=== PATIENT | female | born 2000 | race Caucasian/White ===

== ENCOUNTER 2019-09-14 22:31 | Inpatient (IN) | payer MEDICAID, SELFPAY ==
[2019-09-14 21:20] VITALS: BP 142/82; PULSE 104
[2019-09-14 21:31] VITALS: RESP 20; TEMP 36.9
[2019-09-14 21:38] VITALS: BP 132/85; PULSE 93
[2019-09-14 22:02] VITALS: BMI 23.0
[2019-09-14 22:14] LABS: Actim Prom Positive
[2019-09-14 22:15] VITALS: BP 0/0
[2019-09-14 22:16] VITALS: BP 128/78; PULSE 93
[2019-09-14] MEDS: miSOPROStol 100 mcg tablet 25 MCG VAGINAL (23:32)
[2019-09-14] MEDS: dextrose 5%-lactated ringers 1,000 ML 125 ML IV (23:32)
[2019-09-14 23:33] VITALS: TEMP 36.7
[2019-09-14 23:34] LABS: Basophils % 0.4 %; Eosinophils # 0.1 10^3/uL (0.0-0.8); Hematocrit 28.6 % (37.0-47.0); Hemoglobin 8.5 g/dL (11.5-15.3); Lymphocytes # 2.5 10^3/uL (0.8-4.8); Mean Corpuscular HGB Conc 29.7 g/dL (30.0-36.0); Mean Corpuscular Hemoglobin 22.5 pg (28.0-34.0); Mean Corpuscular Volume 75.9 fL (81-99); Mean Platelet Volume 10.7 fL (7.4-10.4); Monocytes # 0.7 10^3/uL (0.2-0.9); Monocytes % 7.4 %; Neutrophils # 5.9 10^3/uL (1.8-7.7); Neutrophils % 62.6 %; Nucleated Red Blood Cells % 0 %; Platelet Count 212 10^3/cmm (130-400); Red Blood Count 3.77 10^6/uL (4.1-5.3); Red Cell Distribution Width 13.5 % (12.1-15.1); White Blood Count 9.4 10^3/uL (4.0-10.0)
[2019-09-15] VITALS (82 sets, daily range): BP systolic 0–156; BP diastolic 0–98; PULSE 68–124; RESP 16–18; TEMP 36.6–37.4; O2SAT 90–100
--- NOTE | 2019-09-15 00:33 | ANES.PREANE2 ---
Pre-Anesthetic Assessment Pre-Anesthetic Assessment: Height/Weight: Height 1.6 m Weight 58.967 kg Pulse BP Pulse Ox 114 H 0/0 90 09/15/19 00:28 09/15/19 00:32 09/15/19 00:30 Preop Diagnosis: term labor Proposed Procedure: GAYATRI Familial anesthetic complications: none Last Intake: 16:30 Social: Social History: No alcohol and No tobacco Exam: Pre-Anes Outpt Exam: alert, oriented x 3, clear to auscultation bilaterally and regular rate & rhythm Airway: Submandibular: WNL Cervical ROM: WNL MP: 2 Dentition: Full History/ROS: No significant history except as noted and No significant complaints Pulmonary: Pulmonary: None reported CV/HEM: CV/HEM: None reported : : None reported Hepatic: Hepatic: None reported GI: GI: None reported Metabolic: Metabolic: None reported Musc/skel: Musc/skel: Scoliosis Neuropsych: Neuropsych: Anxiety Anesthetic Plan: ASA status: 2 Risk of > 500 ml blood loss (7ml/kg in children): No Meds/Allergies Current Medications: Current Medications Generic Name Dose Route Start Last Admin Trade Name Freq PRN Reason Stop Dose Admin Dextrose/Lactated Ringer's 1,000 mls @ 125 m ls/hr 09/14/19 22:30 09/14/19 23:32 Dextrose 5%-Lact ated Ringers IV 125 mls/hr .Q8H GABRIEL Administration Misoprostol 25 mcg 09/14/19 22:45 09/14/19 23:32 Cytotec VAGINAL 25 mcg Q4H GABRIEL Administration PFSH Anesthesia Female Reproductive History: : 4 Data Anesthesia CBC & Chem 7: 09/14/19 23:17 Other Labs: Laboratory Results - last 48 hr 09/14/19 09/14/19 21:45 23:17 WBC 9.4 RBC 3.77 L Hgb 8.5 L Hct 28.6 L MCV 75.9 L MCH 22.5 L MCHC 29.7 L RDW 13.5 Plt Count 212 MPV 10.7 H Neut % (Auto) 62.6 Lymph % (Auto) 27.0 [place] % (Auto) 7.4 Eos % (Auto) 1.0 Baso % (Auto) 0.4 Neut # (Auto) 5.9 Lymph # (Auto) 2.5 [place] # (Auto) 0.7 Eos # (Auto) 0.1 Baso # (Auto) 0.0 Nucleated RBC % (auto) 0 Nucleated RBCs # 0.0 Insulin-like GF I Positive Cardiac Studies: No Data to Display
--- NOTE | 2019-09-15 00:36 | P.ANES_ITS ---
Anesthesia Procedures Procedure/Date: 09/15/19 GAYATRI Epidural: Time Out Performed: Yes Consents Signed: Procedure Consent Consent: requested by attending/covering physician, from patient, risks and bene fits reviewed and patient agrees to proceed Lumbar Level: L3-L4 Epidural position: sitting Epidural procedure: sterile prep of area, 1% lidocaine to numb the area, 18 g needle, neg for paresthesia, test dose given, 1.5% xylocaine 1:200k epi, 0.2% Ropivacaine bolus ml, placed PCEA, no systemic response, sterile dressing applied and 0.2% Ropiavacaine @ mls/hr Additional Comments: ropiv 0.2% 5cc and 100 mcg Fent bolus at 0035
[2019-09-15] MEDS: ondansetron 2 mg/ML SDV 2 mL 4 MG IVP (00:40)
--- NOTE | 2019-09-15 03:36 | PM.DELIVERY ---
 Delivery Note: Date of delivery: September 15, 2019 Pre-Delivery Course: 19-year-old 4 para 1-0-0-1 female at 38 weeks presented to the hospital with possible rupture of membranes. Her has been unremarkable. She had consistent care. Her labs were unremarkable including a blood type of A positive. Her nitrazine test was inconclusive. An Actiprom was positive. She was given Cytotec 25 mcg per vagina x1. She progressed to complete without difficulty. She was GBS positive, and was started on Ancef per protocol due to a penicillin allergy Delivery: DELIVERY: The patient progressed to complete without difficulty. She delivered a female with a weight of 6 pounds 8 ounces with Apgars of 9, 10. The baby was delivered from the ROSANA position. The baby's mouth and nose were suctioned at the site of the perineum. The baby was then completely delivered and placed on the mother's abdomen. The cord was then clamped and cut. There was nuchal cord x1. There was no meconium. The placenta and 3 vessel cord were delivered intact shortly thereafter. The perineum and vaginal vault were carefully examined. A first-degree posterior midline tear was noted that did not require repair. Both the mother and the baby were in stable condition. Post-Delivery Status: Good A&P Assessment and plan (1) 38 weeks gestation of : Status: Acute Code(s): Z3A.38 - 38 weeks gestation of (2) Spontaneous rupture of membranes: Status: Acute (3) Spontaneous vaginal delivery: Routine care. She did have a little heavier bleeding than normal , if that persists, will need to consider treating her accordingly. She only got 1 dose of antibiotics and her child will need to stay in the hospital for 48 hours. Status: Acute Code(s): O80 - Encounter for full-term uncomplicated delivery (4) Group beta Strep positive: Status: Acute Code(s): B95.1 - Streptococcus, group B, as the cause of diseases classified elsewhere Coding Level of Care Code Acute Pleating Supervisor for Chg Fwd Diagnoses 38 weeks gestation of Z3A.38 Spontaneous rupture of membranes Spontaneous vaginal delivery O80 Group beta Strep positive B95.1
[2019-09-15] MEDS: methylergonovine 0.2 mg/mL INJ 1 mL IM (03:55)
--- NOTE | 2019-09-15 07:57 | ANE.PACU2 ---
 Inpatient post-anesthesia follow up: Airway intact: Yes Vital signs: Temperature 99.4 F Pulse Rate 107 Respiratory Rate 20 Blood Pressure 0/0 Pulse Oximetry 100 Oxygen Delivery Me thod Room Air Oxygen Flow Rate Fraction of Inspir ed Oxygen Hydration adequate: Yes Nausea and vomiting: No Mental status: Baseline Additional Comments: NO signs of infection, up and walking, urinating without ring, patient has had frontal headache since delivery. No exacerbating factors and patient was standing up in room upon examination. States it improved with ibuprofen but is otherwise constant. Feels sleep will help.
[2019-09-15] MEDS: docusate sodium 100 mg Capsule PO ×2 (09:39→17:38)
[2019-09-15] MEDS: prenatal vitamin Capsule 1 CAP PO (09:39)
[2019-09-15] MEDS: HYDROcodone-acetaminophen 5-325 mg Tablet PO ×2 (09:42→17:37)
[2019-09-15 15:44] LABS: Hemoglobin 9.2 g/dL (11.5-15.3); Mean Corpuscular HGB Conc 29.7 g/dL (30.0-36.0); Mean Corpuscular Hemoglobin 22.9 pg (28.0-34.0); Mean Corpuscular Volume 77.3 fL (81-99); Platelet Count 225 10^3/cmm (130-400); Red Blood Count 4.01 10^6/uL (4.1-5.3); Red Cell Distribution Width 13.6 % (12.1-15.1); White Blood Count 12.3 10^3/uL (4.0-10.0)
--- NOTE | 2019-09-15 19:27 | PC.NURSE ---
PATIENT CARE WAS DONE BY FIONA SUAREZ RN AND THIS COMMISSARY SUPERINTENDENT JUST DOCUMENTED FOR HER AT 1925.
[2019-09-16 04:51] VITALS: BP 110/66; PULSE 78; RESP 16
--- NOTE | 2019-09-16 07:34 | PM.OBGYPN ---
GROUNDS AND NURSERY SPECIALIST Subjective Subjective: Interval history: The patient appears to be doing well. Her bleeding has been minimal. She has not been very motivated to breast-feed. Labor: Station: 0 Amniotic Membrane Status: Leaking Monitor Mode: External Contraction Pattern: Regular Status: Category ll Vitals/I&O/Wt Last Vital Signs Temp 98.0 F 09/15/19 21:00 Pulse 78 09/16/19 04:51 Resp 16 09/16/19 04:51 BP 110/66 09/16/19 04:51 Pulse Ox 97 09/15/19 16:30 Weight last 48 hrs Weight 130 lb Physical Exam Narrative: EXAM NARRATIVE: The patient is alert. She appears comfortable. Her heart has a regular rate and rhythm with no murmurs appreciated. Lungs are clear to auscultation bilaterally. Her fundus is firm and below the umbilicus. Data : 09/15/19 15:26 A&P Assessment and plan (1) Spontaneous vaginal delivery: I anticipate routine care. She mentioned to 1 of our nurses that she has some difficulty with depression with her previous . I discussed this with her, including discussing options such as therapy and treatment with medicine. At this time she does not want to start a medication as she does not feel like she is struggling too much. Status: Acute Code(s): O80 - Encounter for full-term uncomplicated delivery Attestations Medical Necessity Statement*: Routine care. She was GBS positive at her child did not receive adequate antibiotic coverage. Coding Level of Care Code Acute Political Anthropologist for Yanna Dias Diagnoses Spontaneous vaginal delivery O80
[2019-09-16] MEDS: docusate sodium 100 mg Capsule PO ×2 (08:45→18:30)
[2019-09-16] MEDS: prenatal vitamin Capsule 1 CAP PO (08:45)
[2019-09-16] MEDS: HYDROcodone-acetaminophen 5-325 mg Tablet PO ×2 (08:46→22:34)
[2019-09-16 10:25] VITALS: BP 114/78; PULSE 98; RESP 18; TEMP 36.6; O2SAT 98
[2019-09-16 17:30] VITALS: BP 113/76; PULSE 82; RESP 18; TEMP 36.4; O2SAT 99
[2019-09-16 22:00] VITALS: BP 114/69; PULSE 80; RESP 18; TEMP 36.9
[2019-09-17 04:42] VITALS: BP 112/68; PULSE 76; RESP 16; TEMP 36.7
--- NOTE | 2019-09-17 07:49 | PC.NURSE ---
Patient does not have IV.
--- NOTE | 2019-09-17 07:57 | P.DS_ITS ---
Discharge Providers [employer] CERTIFIED NETWORK ASSOCIATE Date of Admission: 09/14/19 22:31 Date of Discharge: 09/17/19 Attending Provider at Admission: Claude Rivera MD Attending Provider at Discharge: Claude Rivera MD Primary Care Provider: Talha Dao MD Diagnoses at Discharge Discharge Diagnosis (1) Spontaneous vaginal delivery: Status: Acute Reason for Visit Reason for Visit: Reason For Visit: OB TRIAGE Hospital Course Hospital Course: The patient presented to the hospital in active labor. Please see delivery note for details regarding her hospital stay prior to her delivery. , she had an unremarkable hospital stay. Her bleeding was within normal limits. She did breast-feed and bottle feed her baby during her hospital stay. She receives assistance from the nurses as well as the computing consultant regarding her breast-feeding. Her pain was well controlled. Information Peripartum Data: Delivery Method: Vaginal Physical Exam Narrative: EXAM NARRATIVE: The patient is alert. She appears comfortable. Her heart has a regular rate and rhythm with no murmurs appreciated. Lungs are clear to auscultation bilaterally. Her fundus is firm and below the umbilicus. Discharge Data Vitals: Last Vital Signs Temp 98.0 F 09/17/19 04:42 Pulse 76 09/17/19 04:42 Resp 16 09/17/19 04:42 BP 112/68 09/17/19 04:42 Pulse Ox 99 09/16/19 17:30 Discharge Plan Discharge Patient Disposition: Home, Self-Care Condition: Stable Prescriptions: New ibuprofen 800 mg Tablet 800 mg PO Q8H Qty: 45 RF: 0 Discharge Orders: Discharge Order (Routine); Ordered 09/17/19 Ordered By: Claude Rivera Referrals: Claude Rivera MD [Physician] - 6 Weeks Discharge Diet: Regular Discharge Activity: Limit activity as instructed Patient Instructions: Bleeding (DC), OB Discharge Report, OB Food/Drug Interaction Guide, OB Care at Home, OB Home Care, OB Vaginal Deliveries Discharge Attestations [employer] CERTIFIED NETWORK ASSOCIATE Time Spent in Discharge Care*: less than 30 min Coding Level of Care Code Acute Welfare Eligibility Worker for Chg Fwd Diagnoses Spontaneous vaginal delivery O80
[2019-09-17 08:54] VITALS: BP 102/65; PULSE 98; RESP 18; TEMP 36.7; O2SAT 96
== END 2019-09-17 09:44 | disposition home or self-care (01) | DRG 807 ==
LOC: OPOB 09-18 08:39
PROVIDERS: Admitting Provider Family Medicine; Family Provider Family Medicine; PCP Specialist; Visit Provider Family Medicine
DX: O99.824 Streptococcus B carrier state complicating childbirth (principal); Z37.0 Single live birth; Z3A.38 38 weeks gestation of pregnancy; O69.81X0 Labor and delivery complicated by cord around neck, without compression, not applicable or unspecified; O70.0 First degree perineal laceration during delivery
CPT/HCPCS: 12345; 36415; 51702; 59409; 83986; 84112; 85025; 85027; 96372; 96374; 96375; 98960; 99211; J0690; J2210; J2405; J2795; J3010

== ENCOUNTER 2020-01-08 23:50 | Emergency (ER) | payer MEDICAID, SELFPAY ==
[2020-01-08 23:54] VITALS: BP 127/82; PULSE 119; RESP 16; TEMP 37; O2SAT 100; BMI 21.6
--- NOTE | 2020-01-08 23:55 | XR_ITS ---
WS: [id number] PORTABLE CHEST HISTORY: syncope COMPARISON: 05/28/2017 Lungs are clear and well expanded. No pleural effusion or pneumothorax. Cardiac size: Normal. Mediastinum/Aorta: Normal mediastinum. No osseous abnormality seen. XR/XR chest 1V portable [id number] IMPRESSION: Unremarkable portable chest.
--- NOTE | 2020-01-08 23:56 | ECG_ITS ---
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 Measurements Intervals [place] Rate: 113 P: 68 GA: 132 QRS: 38 QRSD: 89 T: 28 QT: 285 QTc: 392 Interpretive Statements SINUS TACHYCARDIA NONSPECIFIC T-WAVE ABNORMALITY ABNORMAL RHYTHM ECG No previous ECG available for comparison Electronically Signed On 01-09-2020 21:50:55 CDT by Ann Gomez M.D. [email or web address].Invaluable/store/NU/[id number] f
--- NOTE | 2020-01-08 23:56 | W.ED.SYNCOPE ---
HPI - Syncope General: Chief Complaint: Syncope Stated Complaint: SYNCOPE / NUMBNESS / TINGLING Time Seen by Provider: 01/08/20 23:51 Source: patient and EMS Mode of arrival: EMS Limitations: no limitations History of Present Illness: HPI narrative: 19-year-old female who states she smoked marijuana roughly 1 to 2 hours ago. She states that she started to feel lightheaded and did pass out. She states that she had 2 syncopal episodes and is felt anxious and is tachycardic. Patient denies any more lightheadedness is currently. Denies any chest pain. MD complaint: loss of consciousness Onset (ago): hour(s) Associated symptoms: Deny abdominal pain, chest pain, fever(s), headache(s) or nausea Review of Systems Const: Denies: fever(s), chills, body aches or change in appetite Eyes: Denies: blurry vision or eye discomfort ENMT: Denies: throat pain or dental pain Card: Reports: palpitations and syncope; Denies: chest pain Resp: Denies: dyspnea GI: Denies: abdominal pain, nausea, vomiting or diarrhea : Denies: dysuria Musc: Denies: neck pain or back pain Skin/Breast: Denies: rash Neuro: Denies: headache(s) Psych: Reports: anxiety [place]/Lymph: Denies: easy bruising All/Imm: Denies: urticaria PFSH ED PFSH: Social History Smoking and tobacco status: never smoked Physical Exam Const: COMMON NORMALS: no acute distress, patient oriented x3 and healthy appearing HENMT: COMMON NORMALS: normocephalic and atraumatic HEAD & SCALP: normocephalic and atraumatic Eye: COMMON NORMALS: Equal, round and reactive pupils present and EOMs intact bilaterally PUPIL: Yes Equal, round and reactive pupils present Neck/C-Spine: COMMON NORMALS: full ROM and supple Chest: COMMONS NORMALS: normal inspection of the chest and normal palpation of entire chest wall Resp: COMMON NORMALS: normal respiratory effort, No retractions, No use of accessory muscles and clear to auscultation bilaterally AUSCULTATION: clear to auscultation bilaterally Cardio: COMMON NORMALS: regular rhythm and No murmurs present (Cardio) RATE: tachycardic RHYTHM: regular rhythm GI: COMMON NORMALS: Normal to inspection, nondistended, normoactive bowel sounds present, Soft to palpation, non-tender and no masses PALPATION: Yes Soft to palpation Extremity: COMMON NORMALS: normal to inspection and full ROM Neuro: COMMON NORMALS: patient oriented x3, moves all extremities and no focal motor deficits Psych: COMMON NORMALS: mental status grossly normal, Normal thought process present and cooperative MOOD & AFFECT: Yes anxious THOUGHT PROCESS: Normal thought process present Skin: COMMON NORMALS: no rashes or lesions noted and no wounds GENERAL SKIN EXAM: no rashes or lesions noted Course Vital Signs: Vital signs: Vital Signs Temperature 98.6 F 01/08/20 23:54 Pulse Rate 105 H 01/09/20 01:15 Respiratory Rate 16 01/09/20 01:15 Blood Pressure 106/81 01/09/20 01:15 Pulse Oximetry 99 01/09/20 01:15 MDM - Syncope MDM Narrative: Medical decision making narrative: Joe presents here with syncopal event likely due to marijuana use tonight. Patient's EKG and lab work here are normal. She is feels much improved after Ativan and IV fluids. She is stable for discharge and is to follow-up with primary care doctor in 3 to 5 days and return if worsening. Lab Data: Labs: Lab Results 01/08/20 01/08/20 01/09/20 Range/Units 23:58 23:58 01:24 WBC 13.5 H (4.0-10.0) 10^3/ uL RBC 4.80 (4.1-5.3) 10^6/u L Hgb 10.9 L (11.5-15.3) g/dL Hct 36.4 L (37.0-47.0) % MCV 75.8 L (81-99) fL MCH 22.7 L (28.0-34.0) pg MCHC 29.9 L (30.0-36.0) g/dL RDW 13.4 (12.1-15.1) % Plt Count 322 (130-400) 10^3/c mm MPV 9.6 (7.4-10.4) fL Neut % (Auto) 68.5 % Lymph % (Auto) 23.5 % [place] % (Auto) 4.9 % Eos % (Auto) 1.2 % Baso % (Auto) 0.4 % Neut # (Auto) 9.3 H (1.8-7.7) 10^3/u L Lymph # (Auto) 3.2 (0.8-4.8) 10^3/u L [place] # (Auto) 0.7 (0.2-0.9) 10^3/u L Eos # (Auto) 0.2 (0.0-0.8) 10^3/u L Baso # (Auto) 0.1 (0.0-0.1) 10^3/u L Nucleated RBC % (a uto) 0 % Nucleated RBCs # 0.0 /100WBC Sodium 134 L (136-145) mmol/L Potassium 3.3 L (3.5-5.1) mmol/L Chloride 97 L (98-107) mmol/L Carbon Dioxide 21 L (22-29) mmol/L Anion Gap 19.3 H (5-19) BUN 11 (6-20) mg/dL Creatinine 0.9 (0.5-0.9) mg/dL GFR Calculation 79.0 L (90-130) mL/min Glucose 133 H (65-115) mg/dL Calculated Osmolal ity 276 L (285-295) mOsm/k g Calcium 10.0 (8.5-10.5) mg/dL Total Bilirubin 0.2 (0.15-1.2) mg/dL AST 18 (0-32) U/L ALT 16 (0-33) U/L Alkaline Phosphata se 87 (35-105) IU/L Total Protein 7.3 (6.6-8.7) g/dL Albumin 4.6 (3.5-5.2) g/dL Globulin 2.7 (1.3-4.6) g/dL HCG, Qual Negative (Negative) Imaging Data^: CXR: Attestation: I personally reviewed and interpreted this imaging study as follows: My impression: No acute abnormality EKG Data^: EKG 1: Attestation: I personally reviewed and interpreted this EKG as follows: EKG interpretation date: 01/09/20 EKG interpretation time: 01:13 Interpretation: Sinus tach heart rate [address] or T wave abnormalities QRS 89 QTc 352 Discharge Plan Discharge Patient Disposition: Home, Self-Care Clinical Impression: Marijuana use Syncope Qualifiers: Syncope type: unspecified Qualified Code(s): R55 - Syncope and collapse Condition: Stable Prescriptions: No Action Lexapro 10 mg Tablet 10 mg PO DAILY RF: 0 Discharge Orders: Discharge Order (Routine); Ordered 01/09/20 Ordered By: Deo Mckeon Referrals: Bernabe Dao MD [Primary Care Provider] - 1-3 days Discharge Diet: Advance as tolerated Discharge Activity: Resume usual activity Patient Instructions: Syncope (ED) Coding Level of Care Code ED Employment Appeals Examiner for [place] Fwd Exam Comprehensive
[2020-01-09] MEDS: sodium chloride 0.9% 1,000 ML 999 ML IV (00:01)
[2020-01-09 00:09] LABS: Basophils # 0.1 10^3/uL (0.0-0.1); Basophils % 0.4 %; Eosinophils # 0.2 10^3/uL (0.0-0.8); Eosinophils % 1.2 %; Hematocrit 36.4 % (37.0-47.0); Hemoglobin 10.9 g/dL (11.5-15.3); Lymphocytes # 3.2 10^3/uL (0.8-4.8); Lymphocytes % 23.5 %; Mean Corpuscular HGB Conc 29.9 g/dL (30.0-36.0); Mean Corpuscular Hemoglobin 22.7 pg (28.0-34.0); Mean Corpuscular Volume 75.8 fL (81-99); Mean Platelet Volume 9.6 fL (7.4-10.4); Monocytes # 0.7 10^3/uL (0.2-0.9); Monocytes % 4.9 %; Neutrophils # 9.3 10^3/uL (1.8-7.7); Neutrophils % 68.5 %; Nucleated Red Blood Cells % 0 %; Platelet Count 322 10^3/cmm (130-400); Red Cell Distribution Width 13.4 % (12.1-15.1); White Blood Count 13.5 10^3/uL (4.0-10.0)
[2020-01-09 00:32] LABS: Alanine Aminotransferase 16 U/L (0-33); Albumin Level 4.6 g/dL (3.5-5.2); Alkaline Phosphatase 87 IU/L (35-105); Anion Gap 19.3 (5-19); Aspartate Amino Transferase 18 U/L (0-32); Blood Urea Nitrogen 11 mg/dL (6-20); Carbon Dioxide 21 mmol/L (22-29); Chloride 97 mmol/L (98-107); Creatinine Clr Calc Pharmacy 83.6286; Globulin 2.7 g/dL (1.3-4.6); Glucose 133 mg/dL (65-115); Osmolality Calculated 276 mOsm/kg (285-295); Potassium 3.3 mmol/L (3.5-5.1); Sodium 134 mmol/L (136-145); Total Bilirubin 0.2 mg/dL (0.15-1.2); Total Protein 7.3 g/dL (6.6-8.7)
[2020-01-09] MEDS: LORazepam 2 mg/mL INJ 1 mL 1 MG IVP (00:37)
[2020-01-09 01:15] VITALS: BP 106/81; PULSE 105; RESP 16; O2SAT 99
[2020-01-09 01:37] LABS: HCG Qualitative Urine. Negative (Negative)
[2020-01-09 02:08] VITALS: PULSE 82; RESP 16; O2SAT 97
[2020-01-09 02:20] LABS: Amphetamines Screen Urine Negative (Negative); Barbiturates Screen Urine Negative (Negative); Benzodiazepines Screen Urine Negative (Negative); Cocaine Screen Urine Negative (Negative); Opiate Screen Urine Negative (Negative); PCP Screen Urine Negative (Negative); THC Screen Urine Positive (Negative)
== END 2020-01-09 02:10 | disposition home or self-care (01) ==
PROVIDERS: Emergency Provider Emergency Medicine; PCP Family Medicine
DX: R55 Syncope and collapse (principal); F12.90 Cannabis use, unspecified, uncomplicated
CPT/HCPCS: 12345; 71045; 80053; 80306; 81025; 85025; 93005; 96361; 96374; 96375; 99283; 99284; A9270; J2060; J7030

== ENCOUNTER → 2020-02-13 12:42 | Outpatient (BNVA) | payer MEDICAID, SELFPAY | PROVIDERS: PCP Family Medicine; Visit Provider Psychiatry & Neurology Psychiatry | DX: F41.1 Generalized anxiety disorder (principal); F40.10 Social phobia, unspecified; F32.9 Major depressive disorder, single episode, unspecified; F43.12 Post-traumatic stress disorder, chronic ==

== ENCOUNTER → 2020-03-24 09:29 | Outpatient (BNVA) | payer MEDICAID, SELFPAY | PROVIDERS: PCP Family Medicine; Visit Provider Psychiatry & Neurology Psychiatry | DX: F32.9 Major depressive disorder, single episode, unspecified (principal); F40.10 Social phobia, unspecified; F41.1 Generalized anxiety disorder | CPT/HCPCS: 99213 ==

== ENCOUNTER → 2020-06-24 08:30 | Outpatient (BNVA) | payer MEDICAID, SELFPAY | PROVIDERS: PCP Family Medicine; Visit Provider Psychiatry & Neurology Psychiatry | DX: F41.1 Generalized anxiety disorder (principal); F40.10 Social phobia, unspecified; F32.9 Major depressive disorder, single episode, unspecified | CPT/HCPCS: 99214 ==

== ENCOUNTER 2020-06-29 21:59 | Inpatient (IN) | payer MEDICAID, SELFPAY ==
[2020-06-29 22:05] VITALS: BP 131/89; PULSE 98; RESP 18; TEMP 36.7; O2SAT 99; BMI 21.0
--- NOTE | 2020-06-29 22:06 | ECG_ITS ---
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 Measurements Intervals [place] Rate: 90 P: 71 PA: 128 QRS: 24 QRSD: 94 T: 31 QT: 351 QTc: 431 Interpretive Statements SINUS RHYTHM WITH SINUS ARRHYTHMIA Compared to ECG 01/09/2020 00:17:37 Sinus tachycardia no longer present T-wave abnormality no longer present Electronically Signed On 06-30-2020 9:41:33 CHURCH SECRETARY by Andi Christie M.D. [id number] f
--- NOTE | 2020-06-29 22:06 | XR_ITS ---
WS: [id number] XR chest 1V portable [id number] REASON FOR EXAM: Chest pain FINDINGS: Chest is unchanged compared to 01/09/2020. The heart and mediastinum are within normal limits. Calcified granulomatous changes in both hemithoraces. No active pulmonary parenchymal or pleural disease. The heart and mediastinum No significant abnormality of the bony thorax. XR/XR chest 1V portable [id number] IMPRESSION: No acute chest abnormality.
--- NOTE | 2020-06-29 22:53 | W.ED.ANXIETY ---
HPI - Anxiety General: Chief Complaint: Anxiety Stated Complaint: cp/poss anxiety Time Seen by Provider: 06/29/20 22:23 Source: patient Mode of arrival: ambulatory Limitations: no limitations History of Present Illness: HPI narrative: 20-year-old female patient presents to the emergency department with acute anxiety attack. She reports that was at home, playing with her children, sudden onset of chest pain, sweating with feeling of impending doom. Reports took 0.25 mg of Ativan per psychiatry at [facility]. She reports only took half of the recommended dose due to anxiety feeling she would have if she took the whole dose, I worry about what will happen if I take the whole dose . She reports longstanding history of anxiety and has always controlled it till recently. Sense of impending doom is becoming too much and is interfering with daily life. She reports attempted Paxil last week but was not able to tolerate it, states developed suicidal thoughts with medication. States difficulty with anxiety that occurs with taking medications. Reports anxiety is uncontrolled with and without medication. States anxiety is very difficult to control despite behavioral health management and counseling. She reports when onset of chest pain occurs, she cannot break from feeling of impending doom, sweating and panic feeling. States afraid if she goes home, she will continue to feel the same way. States can no longer go on feeling like she does. She is requesting help, she is requesting admission to the stress unit so she does not have to stress about the side effects of medication she needs. States anxiety symptoms are brought on by the stress of her children, she reports cannot pinpoint what exactly brings on anxiety. MD complaint: anxiety, heart racing, shortness of breath and other (Chest Pain) Symptoms: dyspnea, chest pain, palpitations and sense of impending doom Severity: similar to previous episodes Quality: intermittent and worsening Place: home History of similar episodes: Yes Provoking factors: emotional stress and medication change Relieving factors: nothing Exacerbating factors: medication and thinking about event Associated symptoms: Reports chest pain, palpitations and other (diarrhea); Deny chills, confusion, diaphoresis, fever(s), headache(s), malaise, nausea, syncope or vomiting Review of Systems General: Reports: 10 or more systems reviewed and unremarkable except in HPI and below Const: Denies: fever(s), chills, body aches, change in appetite, fatigue, malaise, diaphoresis or change in sleep pattern Eyes: Denies: change in vision, blurry vision, eye discomfort or eye redness ENMT: Denies: throat pain, mouth pain, bleeding gums, dental pain, dry mouth, ear or mastoid pain, disequilibrium, nasal discharge, nasal congestion, nasal obstruction or post nasal drip Card: Reports: chest pain, palpitations and dyspnea on exertion; Denies: irregular heart rhythm, edema, swelling of feet/ankles, syncope or acrocyanosis Resp: Denies: dyspnea, productive cough, non-productive cough, wheezing, pain on inspiration or chest congestion GI: Reports: diarrhea (with anxiety symptoms); Denies: abdominal pain, nausea, vomiting, heartburn, constipation, GI cramping, belching or pain on defecation : Denies: difficulty voiding, dysuria, urinary urgency or urinary incontinence Musc: Denies: neck pain, back pain, joint pain, joint stiffness, muscle cramps or muscle weakness Skin/Breast: Denies: rash, pruritus, erythema, skin tenderness, changing lesions or changes in skin color Neuro: Denies: headache(s), numbness in extremities, weakness in extremities, difficulty walking, confusion or behavioral changes Psych: Reports: anxiety, depression, panic attacks and difficulty concentrating; Denies: visual hallucinations, auditory hallucinations, suicidal ideation or homicidal ideation Benson/Lymph: Denies: easy bruising PFSH ED PFSH: Medical History JAH (generalized anxiety disorder) Major depressive disorder Social anxiety disorder Social History Smoking and tobacco status: never smoked Current gender identity: Female Female Reproductive History: Date of last menstrual period: 12/20/19 Physical Exam Const: COMMON NORMALS: no acute distress, average body habitus, patient oriented x3, no limitations, healthy appearing, alert and well nourished EXAM LIMITATIONS: no altered mental status and no behavioral limitations GENERAL APPEARANCE: cooperative, well kempt, well developed, anxious and well hydrated; not combative, not lethargic, not ill appearing and not frail appearing NUTRITIONAL APPEARANCE: thin ORIENTATION/CONSCIOUSNESS: Yes awake, Yes oriented to person, Yes oriented to place and Yes oriented to time; not confused and not lethargic HENMT: COMMON NORMALS: normocephalic, atraumatic, Normal external nose present, Normal nasal mucous membranes and turbinates present, moist oral mucous membranes and oropharynx normal HEAD & SCALP: normal to inspection, normocephalic and atraumatic FACE & SINUS: normal facial exam, sinuses nontender and face symmetric NOSE: Normal external nose present and Normal nasal mucous membranes and turbinates present MOUTH: Normal oral and palatal mucosa present, lip normal and tongue normal Eye: COMMON NORMALS: Equal, round and reactive pupils present, EOMs intact bilaterally and conjunctivae normal GENERAL EYE: appearance normal, both eyes and all related structures EYELID: eyelids normal CONJUNCTIVA: Yes conjunctivae normal PUPIL: Yes Equal, round and reactive pupils present Neck/C-Spine: COMMON NORMALS: full ROM, no lymphadenopathy, supple and no meningeal signs GENERAL: Yes normal visual inspection and Yes trachea midline CERVICAL SPINE: Yes cervical ROM normal Lymph: LYMPHATIC: no lymphadenopathy noted Chest: COMMONS NORMALS: normal inspection of the chest and normal palpation of entire chest wall CHEST: No abnormal inspection of the chest Resp: COMMON NORMALS: normal respiratory effort, No retractions, No use of accessory muscles and clear to auscultation bilaterally EFFORT & INSPECTION: Yes able to speak in complete sentences AUSCULTATION: clear to auscultation bilaterally and lung sounds not diminished Cardio: COMMON NORMALS: regular rate, regular rhythm, S1 normal heart sound present, S2 normal heart sound present and Peripheral pulses 2+ throughout RATE: regular rate RHYTHM: regular rhythm HEART SOUNDS: S1 normal heart sound present and S2 normal heart sound present PERIPHERAL PULSES: Peripheral pulses 2+ throughout GI: COMMON NORMALS: Normal to inspection, nondistended, normoactive bowel sounds present, Soft to palpation and non-tender INSPECTION: Yes normal to inspection, No abdominal wall ecchymosis and No abdominal distension PALPATION: Yes Soft to palpation : COMMON NORMALS: Yes no CVA tenderness BLADDER/KIDNEY EXAM: Yes no CVA tenderness Back/Pelvis: COMMON NORMALS: no CVA tenderness and thoracic and lumbar spine normal to inspection Extremity: COMMON NORMALS: normal to inspection and capillary refill normal Neuro: COMMON NORMALS: patient oriented x3 and no focal motor deficits SENSORIUM/ORIENTATION: Yes alert, Yes oriented to person, Yes oriented to place, Yes oriented to time and No lethargic MENINGEAL SIGNS: Yes no meningeal signs Psych: COMMON NORMALS: mental status grossly normal, Normal thought process present, cooperative, normal affect, speech normal, activity/motor behavior normal, denies hallucinations, denies homicidal ideation and denies suicidal ideation APPEARANCE: Yes grossly normal and Yes well kempt ATTITUDE: Yes Other attitude/behavior findings present (Psych) (tearful, anxious) ACTIVITY/MOTOR BEHAVIOR: Yes appropriate eye contact and No psychomotor agitation SPEECH: Yes normal speech MOOD & AFFECT: Yes anxious and Yes tearful THOUGHT PROCESS: Normal thought process present THOUGHT CONTENT: Yes Normal thought content present ATTENTION/CONCENTRATION: Yes attention grossly intact MEMORY/COGNITION: Yes memory grossly intact INSIGHT: Good insight present (Psych) JUDGEMENT: Good judgement present (Psych) Skin: COMMON NORMALS: no rashes or lesions noted and turgor normal GENERAL SKIN EXAM: no rashes or lesions noted and turgor normal Course ED course: 20-year-old female patient presents to the emergency department with acute anxiety -half of prescribed dose Ativan was not effective with controlling symptoms. Ativan was offered here in the ED, she declined, reports will stress about the side effects of the medication and would rather not take it. She is requesting admission to stress unit. States if she does not stress about the side effects of medication that occurs, then will find something else to stress about. Reports anxiety is out of control. Tylenol was not effective with symptoms. Has attempted several medications in the past, propranolol, hydroxyzine, Paxil without improved results. She continues with counseling and psychiatry follow-up without improvement. She is requesting admission to the stress unit to help with anxiety symptoms. She denies suicidal/homicidal ideation plans or thoughts. She agrees to go the stress unit voluntary. Consultations: Consultation #1: Dr Winchester, 0130 am - case discussed with clinic findings, HPI, serology results - agrees for admission to the stress unit. Time: 01:30 Vital Signs: Vital signs: Vital Signs Temperature 98.1 F 06/29/20 22:05 Pulse Rate 98 06/29/20 22:05 Respiratory Rate 18 06/29/20 22:05 Blood Pressure 131/89 06/29/20 22:05 Pulse Oximetry 99 06/29/20 22:05 MDM - Anxiety EKG Data^: EKG 1: EKG interpretation date: 06/29/20 EKG interpretation time: 22:20 Other EKG comments: Normal sinus rhythm, normal ECG, ventricular rate 90 Lab Data: Labs: Lab Results 06/29/20 06/29/20 06/29/20 Range/Units 22:54 22:54 22:54 WBC 9.3 (4.0-10.0) 10^3/ uL RBC 5.11 (4.1-5.3) 10^6/u L Hgb 13.5 (11.5-15.3) g/dL Hct 43.5 (37.0-47.0) % MCV 85.1 (81-99) fL MCH 26.4 L (28.0-34.0) pg MCHC 31.0 (30.0-36.0) g/dL RDW 13.2 (12.1-15.1) % Plt Count 356 (130-400) 10^3/c mm MPV 10.6 H (7.4-10.4) fL Neut % (Auto) 59.4 % Lymph % (Auto) 33.0 % [place] % (Auto) 4.6 % Eos % (Auto) 1.7 % Baso % (Auto) 1.0 % Neut # (Auto) 5.53 (1.8-7.7) 10^3/u L Lymph # (Auto) 3.1 (0.8-4.8) 10^3/u L [place] # (Auto) 0.4 (0.2-0.9) 10^3/u L Eos # (Auto) 0.2 (0.0-0.8) 10^3/u L Baso # (Auto) 0.1 (0.0-0.1) 10^3/u L Nucleated RBC % (a uto) 0 % Nucleated RBCs # 0.0 /100WBC Sodium 138 (136-145) mmol/L Potassium 3.9 (3.5-5.1) mmol/L Chloride 103 (98-107) mmol/L Carbon Dioxide 26 (22-29) mmol/L Anion Gap 12.9 (5-19) BUN 10 (6-20) mg/dL Creatinine 0.6 (0.5-0.9) mg/dL GFR Calculation 125.0 (90-130) mL/min Glucose 99 (65-115) mg/dL Calculated Osmolal ity 285 (285-295) mOsm/k g Calcium 9.6 (8.5-10.5) mg/dL Total Bilirubin 0.2 (0.15-1.2) mg/dL AST 12 (0-32) U/L ALT 9 (0-33) U/L Alkaline Phosphata se 78 (35-105) IU/L Troponin T Baselin e (0-10) ng/L Total Protein 7.9 (6.6-8.7) g/dL Albumin 4.5 (3.5-5.2) g/dL Globulin 3.4 (1.3-4.6) g/dL HCG, Qual Negative (Negative) Urine Color (Yellow) Urine Appearance (CLEAR) Urine pH (5-7) Ur Specific Gravit y (1.005-1.030) Urine Protein (Negative) Urine Glucose (UA) (Normal) Urine Ketones (Negative) Urine Blood (Negative) Urine Nitrate (Negative) Urine Bilirubin (Negative) Urine Urobilinogen (Negative) mg/dL Ur Leukocyte Leana ase (Negative) Salicylates < 0.3 L (3-10) mg/dL Urine Opiates Scre en (Negative) ng/mL Acetaminophen < 5.0 L (10-30) ug/mL Ur Barbiturates Sc reen (Negative) ng/mL Ur Phencyclidine S crn (Negative) ng/mL Ur Amphetamines Sc reen (Negative) ng/mL U Benzodiazepines Scrn (Negative) ng/mL Urine Cocaine Scre en (Negative) ng/mL U Marijuana (THC) Screen (Negative) ng/mL Ethyl Alcohol < 10 (0-10) mg/dL 06/29/20 06/29/20 06/30/20 Range/Units 23:01 23:01 00:04 WBC (4.0-10.0) 10^3/ uL RBC (4.1-5.3) 10^6/u L Hgb (11.5-15.3) g/dL Hct (37.0-47.0) % MCV (81-99) fL MCH (28.0-34.0) pg MCHC (30.0-36.0) g/dL RDW (12.1-15.1) % Plt Count (130-400) 10^3/c mm MPV (7.4-10.4) fL Neut % (Auto) % Lymph % (Auto) % [place] % (Auto) % Eos % (Auto) % Baso % (Auto) % Neut # (Auto) (1.8-7.7) 10^3/u L Lymph # (Auto) (0.8-4.8) 10^3/u L [place] # (Auto) (0.2-0.9) 10^3/u L Eos # (Auto) (0.0-0.8) 10^3/u L Baso # (Auto) (0.0-0.1) 10^3/u L Nucleated RBC % (a uto) % Nucleated RBCs # /100WBC Sodium (136-145) mmol/L Potassium (3.5-5.1) mmol/L Chloride (98-107) mmol/L Carbon Dioxide (22-29) mmol/L Anion Gap (5-19) BUN (6-20) mg/dL Creatinine (0.5-0.9) mg/dL GFR Calculation (90-130) mL/min Glucose (65-115) mg/dL Calculated Osmolal ity (285-295) mOsm/k g Calcium (8.5-10.5) mg/dL Total Bilirubin (0.15-1.2) mg/dL AST (0-32) U/L ALT (0-33) U/L Alkaline Phosphata se (35-105) IU/L Troponin T Baselin e 6 (0-10) ng/L Total Protein (6.6-8.7) g/dL Albumin (3.5-5.2) g/dL Globulin (1.3-4.6) g/dL HCG, Qual (Negative) Urine Color Yellow (Yellow) Urine Appearance Clear (CLEAR) Urine pH 7 (5-7) Ur Specific Gravit y 1.015 (1.005-1.030) Urine Protein Neg (Negative) Urine Glucose (UA) Norm (Normal) Urine Ketones Negative (Negative) Urine Blood Neg (Negative) Urine Nitrate Negative (Negative) Urine Bilirubin Neg (Negative) Urine Urobilinogen Norm (Negative) mg/dL Ur Leukocyte Leana ase Negative (Negative) Salicylates (3-10) mg/dL Urine Opiates Scre en Negative (Negative) ng/mL Acetaminophen (10-30) ug/mL Ur Barbiturates Sc reen Negative (Negative) ng/mL Ur Phencyclidine S crn Negative (Negative) ng/mL Ur Amphetamines Sc reen Negative (Negative) ng/mL U Benzodiazepines Scrn Negative (Negative) ng/mL Urine Cocaine Scre en Negative (Negative) ng/mL U Marijuana (THC) Screen Negative (Negative) ng/mL Ethyl Alcohol (0-10) mg/dL Discharge Plan Discharge Patient Disposition: Admitted As Inpatient Clinical Impression: Acute anxiety, Panic disorder Condition: Stable Prescriptions: No Action lorazepam 0.5 mg tablet 0.5 mg PO DAILY PRN (Reason: anxiety) 30 Days Qty: 30 RF: 1 Referrals: Claude Rivera MD [Primary Care Provider] - Coding Level of Care Code ED Freight Associate for [facility] Exam Comprehensive
[2020-06-29 23:07] LABS: Add Urine Microscopic? NO
[2020-06-29] MEDS: acetaminophen 500 mg Tablet 1000 MG PO (23:21)
[2020-06-29 23:33] LABS: Bilirubin Urine Neg (Negative); Blood Urine Neg (Negative); Glucose Urine UA Norm (Normal); Ketones Urine Negative (Negative); Leukocyte Esterase Urine Negative (Negative); Nitrate Urine Negative (Negative); Protein Urine Neg (Negative); Specific Gravity, Urine 1.015 (1.005-1.030); Urine Appearance Clear (CLEAR); Urine Color Yellow (Yellow); Urobilinogen Urine Norm (Negative); pH Urine 7 (5-7)
[2020-06-29 23:35] LABS: Amphetamines Screen Urine Negative (Negative); Barbiturates Screen Urine Negative (Negative); Benzodiazepines Screen Urine Negative (Negative); Cocaine Screen Urine Negative (Negative); Opiate Screen Urine Negative (Negative); PCP Screen Urine Negative (Negative); THC Screen Urine Negative (Negative)
[2020-06-29 23:38] LABS: HCG, Serum Qual Negative (Negative)
[2020-06-29 23:43] LABS: Alanine Aminotransferase 9 U/L (0-33); Albumin Level 4.5 g/dL (3.5-5.2); Alkaline Phosphatase 78 IU/L (35-105); Anion Gap 12.9 (5-19); Aspartate Amino Transferase 12 U/L (0-32); Blood Urea Nitrogen 10 mg/dL (6-20); Calcium 9.6 mg/dL (8.5-10.5); Carbon Dioxide 26 mmol/L (22-29); Chloride 103 mmol/L (98-107); Globulin 3.4 g/dL (1.3-4.6); Glucose 99 mg/dL (65-115); Osmolality Calculated 285 mOsm/kg (285-295); Potassium 3.9 mmol/L (3.5-5.1); Sodium 138 mmol/L (136-145); Total Bilirubin 0.2 mg/dL (0.15-1.2); Total Protein 7.9 g/dL (6.6-8.7)
--- NOTE | 2020-06-29 23:50 | PC.NURSE ---
pt refuses ativan 0.5 mg PO. pt states my anxiety is so high. My chest is hurting. Even thinking about taking that makes it worse. I feel like it makes my chest hurt worse. Like it will hurt me. Like my heart will just stop and I won't wake up. Pt continues to say that she was recently prescribed Paxil and it caused her to feel depressed with suicidal thoughts and no relief of her anxiety. pt reports that she only took the Paxil one day due to feeling that way. pt reports that the suicidal thoughts did not continue after that day. pt reports that since then she is anxious about taking even over the counter medications like TUMS or Tylenol due to fear that it will make something worse or harm her in some way.
[2020-06-29 23:51] LABS: Acetaminophen < 5.0 ug/mL (10-30); Alcohol Level < 10 mg/dL (0-10); Salicylate < 0.3 mg/dL (3-10)
[2020-06-30 00:01] LABS: Basophils # 0.1 10^3/uL (0.0-0.1); Eosinophils # 0.2 10^3/uL (0.0-0.8); Eosinophils % 1.7 %; Hematocrit 43.5 % (37.0-47.0); Hemoglobin 13.5 g/dL (11.5-15.3); Lymphocytes # 3.1 10^3/uL (0.8-4.8); Mean Corpuscular Hemoglobin 26.4 pg (28.0-34.0); Mean Corpuscular Volume 85.1 fL (81-99); Mean Platelet Volume 10.6 fL (7.4-10.4); Monocytes # 0.4 10^3/uL (0.2-0.9); Monocytes % 4.6 %; Neutrophils # 5.53 10^3/uL (1.8-7.7); Neutrophils % 59.4 %; Nucleated Red Blood Cells % 0 %; Platelet Count 356 10^3/cmm (130-400); Red Blood Count 5.11 10^6/uL (4.1-5.3); Red Cell Distribution Width 13.2 % (12.1-15.1); White Blood Count 9.3 10^3/uL (4.0-10.0)
[2020-06-30 00:37] LABS: Troponin(5th) Baseline 6 ng/L (0-10)
[2020-06-30 02:21] VITALS: BP 120/84; PULSE 90; RESP 16; O2SAT 96
[2020-06-30 02:42] VITALS: BP 135/94; PULSE 109; RESP 19; TEMP 38.4; O2SAT 99
[2020-06-30] MEDS: hyDROXYzine 25 mg Capsule 50 MG PO ×2 (03:11→20:07)
[2020-06-30] MEDS: OLANZapine 5 mg ODT PO (05:13)
[2020-06-30 06:00] VITALS: BP 99/57; PULSE 71; RESP 15; TEMP 37.3; O2SAT 95
[2020-06-30 14:00] VITALS: BP 130/60; PULSE 78; RESP 20; TEMP 36.6; O2SAT 97
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
[2020-06-30] MEDS: trazodone 50 mg Tablet PO (20:06)
[2020-06-30] MEDS: loperamide 2 mg Capsule PO (20:07)
[2020-06-30 20:41] VITALS: BP 105/70; PULSE 111; RESP 15; TEMP 36.8; O2SAT 99
[2020-07-01 06:00] VITALS: BP 103/65; PULSE 82; RESP 14; TEMP 36.4; O2SAT 98
[2020-07-01 14:00] VITALS: BP 120/76; PULSE 105; RESP 18; TEMP 37.5; O2SAT 97
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
[2020-07-01 14:54] VITALS: BP 120/76; PULSE 105; RESP 18; TEMP 37.5; O2SAT 97
[2020-07-01] MEDS: acetaminophen 325 mg Tablet 650 MG PO (14:56)
== END 2020-07-01 15:00 | disposition home or self-care (01) | DRG 880 ==
LOC: ER 06-30 01:56 → NP 06-30 01:57
PROVIDERS: Admitting Provider Psychiatry & Neurology Psychiatry; Emergency Provider Nurse Practitioner Family; PCP Family Medicine; Visit Provider Psychiatry & Neurology Psychiatry
DX: F41.0 Panic disorder [episodic paroxysmal anxiety] (principal); F41.1 Generalized anxiety disorder; F32.9 Major depressive disorder, single episode, unspecified
CPT/HCPCS: 12345; 71045; 80053; 80306; 80307; 81003; 84484; 84703; 85025; 93005; 99281

== ENCOUNTER 2020-07-10 19:25 | Emergency (ER) | payer MEDICAID, SELFPAY ==
[2020-07-10 19:57] VITALS: BP 151/88; PULSE 108; RESP 18; TEMP 36.9; O2SAT 98; BMI 19.9
--- NOTE | 2020-07-10 23:39 | XRR_ITS ---
PROCEDURE INFORMATION: Exam: XR Chest, 1 View Exam date and time: 07/10/2020 11:50 PM Age: 20 years old Clinical indication: Chest pain TECHNIQUE: Imaging protocol: XR of the chest Views: 1 view. COMPARISON: CR XR chest 1V portable [id number] 06/29/2020 10:09 PM FINDINGS: Lungs: Unremarkable. No consolidation. Pleural space: Unremarkable. No pleural effusion. No pneumothorax. Heart/Mediastinum: Unremarkable. No cardiomegaly. Bones/joints: Unremarkable. XR/XR chest 1V portable [id number] IMPRESSION: No acute findings.
--- NOTE | 2020-07-10 23:47 | ECG_ITS ---
[facility] Test Date: 2020-07-10 Pat Name: Joe Rios Department: Room: Gender: Female Fence Supervisor: : 2000 Requested By: Dionna Platt Order Number: [id number] Lucas MD: Fredy Krueger M.D. Measurements Intervals [place] Rate: 84 P: 67 CO: 142 QRS: 18 QRSD: 96 T: 31 QT: 349 QTc: 414 Interpretive Statements SINUS RHYTHM WITH SINUS ARRHYTHMIA Compared to ECG 06/29/2020 22:19:42 No significant changes Electronically Signed On 07-11-2020 10:57:30 [employer] by Fredy Krueger M.D. [id number]
[2020-07-10 23:52] VITALS: BP 118/74; PULSE 84; RESP 14; O2SAT 95
--- NOTE | 2020-07-10 23:53 | W.ED.CHESTPA ---
HPI - Chest Pain General: Chief Complaint: Chest Pain Stated Complaint: DIZZINESS, DIFFICUTLY BREATHING Time Seen by Provider: 07/10/20 23:39 Source: patient Mode of arrival: ambulatory Limitations: no limitations History of Present Illness: HPI narrative: Joe is a very nice 20-year-old female comes in complaining of 2 weeks of intermittent sharp and throbbing chest pain. Patient states the pain is almost always there but is intermittently worse. She denies any exacerbating or alleviating factors. She denies cough, fever, loss sense of taste or loss of sense of smell. Patient denies anything similar in the past. She is unaware of any exacerbating or alleviating factors. Associated symptoms: Reports palpitations; Deny abdominal pain, diaphoresis, dyspnea, fever(s), nausea, syncope or vomiting Review of Systems Const: Denies: fever(s), chills, body aches, fatigue, malaise or diaphoresis Eyes: Denies: change in vision, blurry vision, photophobia, eye discomfort, eye discharge, eye redness or yellow eyes ENMT: Denies: throat pain, odynophagia, hoarseness, swelling of lips/tongue, ear or mastoid pain, ear discharge, change in hearing or nasal discharge Card: Reports: chest pain, palpitations and lightheadedness; Denies: irregular heart rhythm, edema, syncope, pre-syncope, dyspnea on exertion or orthopnea Resp: Denies: dyspnea, productive cough, non-productive cough, wheezing, hemoptysis or chest congestion GI: Denies: abdominal pain, nausea, vomiting, hematemesis, coffee ground emesis, heartburn, diarrhea, constipation, GI cramping, hematochezia or melena : Denies: flank pain, dysuria, urinary frequency, urinary urgency or hematuria Musc: Denies: neck pain, back pain, extremity pain, extremity swelling, joint pain, joint swelling, joint redness, joint warmth or joint stiffness Skin/Breast: Denies: rash, pruritus, erythema, skin pain or skin tenderness Neuro: Denies: headache(s), numbness in extremities, weakness in extremities, sensory changes, lack of coordination, difficulty walking, dizziness, vertigo, confusion, Slurred speech present or seizure-like activity Benson/Lymph: Denies: easy bruising, easy bleeding, petechiae, purpura or enlarged lymph nodes All/Imm: Denies: urticaria, throat swelling, tongue swelling, facial swelling or acute wheezing PFSH ED PFSH: Medical History JAH (generalized anxiety disorder) Major depressive disorder Social anxiety disorder Social History Smoking and tobacco status: never smoked Current gender identity: Female Female Reproductive History: Date of last menstrual period: 06/20/20 Physical Exam Const: COMMON NORMALS: no acute distress, patient oriented x3, no limitations and alert GENERAL APPEARANCE: cooperative HENMT: COMMON NORMALS: normocephalic, atraumatic, external ears normal, EAC's normal and Normal external nose present HEAD & SCALP: normal to inspection, normocephalic and atraumatic FACE & SINUS: normal facial exam and face symmetric NOSE: Normal external nose present and Normal nares present EXTERNAL EAR: Yes external ears normal EXTERNAL AUDITORY CANAL: EAC's normal MOUTH: Normal oral and palatal mucosa present, lip normal and tongue normal Eye: COMMON NORMALS: Equal, round and reactive pupils present and conjunctivae normal GENERAL EYE: appearance normal, both eyes and all related structures ALIGNMENT: Yes alignment normal PERIORBITAL: periorbital findings normal EYELID: eyelids normal CONJUNCTIVA: Yes conjunctivae normal SCLERA: sclerae normal PUPIL: Yes Equal, round and reactive pupils present Neck/C-Spine: COMMON NORMALS: full ROM, no lymphadenopathy, supple, no meningeal signs and no JVD GENERAL: Yes normal visual inspection and Yes trachea midline Chest: COMMONS NORMALS: normal inspection of the chest and normal palpation of entire chest wall Resp: COMMON NORMALS: normal respiratory effort, No retractions, No use of accessory muscles and clear to auscultation bilaterally EFFORT & INSPECTION: Yes able to speak in complete sentences and Yes symmetric chest movement AUSCULTATION: clear to auscultation bilaterally, no crackles, no rales, no rhonchi and no wheezes Cardio: COMMON NORMALS: no JVD, regular rate, regular rhythm, S1 normal heart sound present and S2 normal heart sound present RATE: regular rate RHYTHM: regular rhythm HEART SOUNDS: S1 normal heart sound present, S2 normal heart sound present, no click, no gallops, no murmurs and no rubs GI: COMMON NORMALS: Soft to palpation and No hepatosplenomegaly present PALPATION: Yes Soft to palpation, No Tenderness to palpation present (GI), No Guarding due to palpation present (GI), No Rigid due to palpation, Yes No hepatosplenomegaly present, No Hernia present, No Palpable mass present and No Pulsatile mass present : COMMON NORMALS: Yes no CVA tenderness BLADDER/KIDNEY EXAM: Yes no CVA tenderness EXTERNAL FEMALE EXAM: No Hernia present Back/Pelvis: COMMON NORMALS: no CVA tenderness, thoracic and lumbar spine normal to inspection, no thoracic nor lumbar tenderness and thoraco-lumbar ROM normal Extremity: COMMON NORMALS: normal to inspection, full ROM, capillary refill normal, no joint enlargement, no clubbing, cyanosis or edema and no calf tenderness Neuro: COMMON NORMALS: patient oriented x3, CN's II-XII intact bilaterally, moves all extremities, no focal motor deficits and no sensory deficits noted SENSORIUM/ORIENTATION: Yes alert MENINGEAL SIGNS: Yes no meningeal signs SPEECH: speech normal Psych: COMMON NORMALS: mental status grossly normal, Normal thought process present, cooperative, normal affect, speech normal and activity/motor behavior normal SPEECH: Yes normal speech THOUGHT PROCESS: Normal thought process present Skin: COMMON NORMALS: no rashes or lesions noted, turgor normal, no jaundice, no petechiae and no mottling GENERAL SKIN EXAM: no rashes or lesions noted and turgor normal Course Vital Signs: Vital signs: Vital Signs Temperature 98.4 F 07/10/20 19:57 Pulse Rate 89 07/11/20 01:02 Respiratory Rate 16 07/11/20 01:02 Blood Pressure 132/80 07/11/20 01:02 Pulse Oximetry 96 07/11/20 01:02 MDM - Chest Pain MDM Narrative: Medical decision making narrative: Joe is a very nice 20-year-old female who comes in complaining of chest discomfort and palpitations. Her work-up here is unremarkable. I see no evidence for a cause for her pain. Patient declines any further evaluation and care would like to go home. She agrees to return if her symptoms change or worsen. This time I see no evidence of life-threatening arrhythmia, acute coronary syndrome, pulmonary embolism or any other acute life-threatening event. Patient does agree to return should her symptoms change or worsen and she will also follow-up with her regular doctor for recheck. Lab Data: Attestation: I reviewed the patient's lab results. Labs: Lab Results 07/10/20 07/10/20 07/10/20 Range/Units 23:52 23:52 23:52 WBC 11.1 H (4.0-10.0) 10^3/ uL RBC 4.99 (4.1-5.3) 10^6/u L Hgb 13.3 (11.5-15.3) g/dL Hct 41.1 (37.0-47.0) % MCV 82.4 (81-99) fL MCH 26.7 L (28.0-34.0) pg MCHC 32.4 (30.0-36.0) g/dL RDW 13.2 (12.1-15.1) % Plt Count 298 (130-400) 10^3/c mm MPV 10.4 (7.4-10.4) fL Neut % (Auto) 58.5 % Lymph % (Auto) 34.5 % [place] % (Auto) 4.6 % Eos % (Auto) 1.5 % Baso % (Auto) 0.6 % Neut # (Auto) 6.48 (1.8-7.7) 10^3/u L Lymph # (Auto) 3.8 (0.8-4.8) 10^3/u L [place] # (Auto) 0.5 (0.2-0.9) 10^3/u L Eos # (Auto) 0.2 (0.0-0.8) 10^3/u L Baso # (Auto) 0.1 (0.0-0.1) 10^3/u L Nucleated RBC % (a uto) 0 % Nucleated RBCs # 0.0 /100WBC D-Dimer 0.32 (0-0.59) ug/mIFE U Sodium 135 L (136-145) mmol/L Potassium 4.0 (3.5-5.1) mmol/L Chloride 102 (98-107) mmol/L Carbon Dioxide 23 (22-29) mmol/L Anion Gap 14.0 (5-19) BUN 8 (6-20) mg/dL Creatinine 0.6 (0.5-0.9) mg/dL GFR Calculation 125.0 (90-130) mL/min Glucose 97 (65-115) mg/dL Calculated Osmolal ity 278 L (285-295) mOsm/k g Calcium 9.7 (8.5-10.5) mg/dL Total Bilirubin 0.2 (0.15-1.2) mg/dL AST 13 (0-32) U/L ALT 9 (0-33) U/L Alkaline Phosphata se 80 (35-105) IU/L Troponin T Baselin e (0-10) ng/L Total Protein 7.5 (6.6-8.7) g/dL Albumin 4.5 (3.5-5.2) g/dL Globulin 3.0 (1.3-4.6) g/dL 07/10/20 Range/Units 23:52 WBC (4.0-10.0) 10^3/ uL RBC (4.1-5.3) 10^6/u L Hgb (11.5-15.3) g/dL Hct (37.0-47.0) % MCV (81-99) fL MCH (28.0-34.0) pg MCHC (30.0-36.0) g/dL RDW (12.1-15.1) % Plt Count (130-400) 10^3/c mm MPV (7.4-10.4) fL Neut % (Auto) % Lymph % (Auto) % [place] % (Auto) % Eos % (Auto) % Baso % (Auto) % Neut # (Auto) (1.8-7.7) 10^3/u L Lymph # (Auto) (0.8-4.8) 10^3/u L [place] # (Auto) (0.2-0.9) 10^3/u L Eos # (Auto) (0.0-0.8) 10^3/u L Baso # (Auto) (0.0-0.1) 10^3/u L Nucleated RBC % (a uto) % Nucleated RBCs # /100WBC D-Dimer (0-0.59) ug/mIFE U Sodium (136-145) mmol/L Potassium (3.5-5.1) mmol/L Chloride (98-107) mmol/L Carbon Dioxide (22-29) mmol/L Anion Gap (5-19) BUN (6-20) mg/dL Creatinine (0.5-0.9) mg/dL GFR Calculation (90-130) mL/min Glucose (65-115) mg/dL Calculated Osmolal ity (285-295) mOsm/k g Calcium (8.5-10.5) mg/dL Total Bilirubin (0.15-1.2) mg/dL AST (0-32) U/L ALT (0-33) U/L Alkaline Phosphata se (35-105) IU/L Troponin T Baselin e 6 (0-10) ng/L Total Protein (6.6-8.7) g/dL Albumin (3.5-5.2) g/dL Globulin (1.3-4.6) g/dL Imaging Data^: CXR: Attestation: I personally reviewed and interpreted this imaging study as follows: My impression: No acute cardiopulmonary findings. EKG Data^: EKG 1: Attestation: I personally reviewed and interpreted this EKG as follows: EKG interpretation date: 07/10/20 EKG interpretation time: 23:58 Interpretation: Sinus tachycardia 105 beats a minute, normal axis, no blocks, normal intervals, no acute ST-T wave changes. Discharge Plan Discharge Patient Disposition: Home Clinical Impression: Chest pain Qualifiers: Chest pain type: unspecified Qualified Code(s): R07.9 - Chest pain, unspecified Condition: Stable Prescriptions: No Action lorazepam 0.5 mg tablet 0.5 mg PO DAILY PRN (Reason: anxiety) 30 Days Qty: 30 RF: 1 Discharge Orders: Discharge ED (Routine); Ordered 07/11/20 Ordered By: Dionna Ocampo Referrals: Claude Rivera MD [Primary Care Provider] - 1-3 days Discharge Diet: Advance as tolerated Discharge Activity: Increase activity as tolerated Patient Instructions: Chest Pain (ED) Activity Restrictions/Additional Instructions: Please return to the ER immediately for any of the signs or symptoms listed on your discharge instruction sheets, worsening/changing of your symptoms, you are not getting better as quickly as expected, or for ANY other cause or concerns. Coding Level of Care Code ED Nanotechnology Engineering Technician for Chg Fwd Exam Comprehensive
[2020-07-11] VITALS: BP 130/92; PULSE 96; RESP 19; O2SAT 98
--- NOTE | 2020-07-11 00:03 | PC.NURSE ---
EKG done at 0000 and shown to ER doctor
[2020-07-11 00:12] LABS: Basophils # 0.1 10^3/uL (0.0-0.1); Basophils % 0.6 %; Eosinophils # 0.2 10^3/uL (0.0-0.8); Eosinophils % 1.5 %; Hematocrit 41.1 % (37.0-47.0); Hemoglobin 13.3 g/dL (11.5-15.3); Lymphocytes # 3.8 10^3/uL (0.8-4.8); Lymphocytes % 34.5 %; Mean Corpuscular HGB Conc 32.4 g/dL (30.0-36.0); Mean Corpuscular Hemoglobin 26.7 pg (28.0-34.0); Mean Corpuscular Volume 82.4 fL (81-99); Mean Platelet Volume 10.4 fL (7.4-10.4); Monocytes # 0.5 10^3/uL (0.2-0.9); Monocytes % 4.6 %; Neutrophils # 6.48 10^3/uL (1.8-7.7); Neutrophils % 58.5 %; Nucleated Red Blood Cells % 0 %; Platelet Count 298 10^3/cmm (130-400); Red Blood Count 4.99 10^6/uL (4.1-5.3); Red Cell Distribution Width 13.2 % (12.1-15.1); White Blood Count 11.1 10^3/uL (4.0-10.0)
[2020-07-11 00:20] LABS: D Dimer 0.32 ug/mIFEU (0-0.59)
[2020-07-11 00:23] LABS: Alanine Aminotransferase 9 U/L (0-33); Albumin Level 4.5 g/dL (3.5-5.2); Alkaline Phosphatase 80 IU/L (35-105); Aspartate Amino Transferase 13 U/L (0-32); Blood Urea Nitrogen 8 mg/dL (6-20); Calcium 9.7 mg/dL (8.5-10.5); Carbon Dioxide 23 mmol/L (22-29); Chloride 102 mmol/L (98-107); Glucose 97 mg/dL (65-115); Osmolality Calculated 278 mOsm/kg (285-295); Sodium 135 mmol/L (136-145); Total Bilirubin 0.2 mg/dL (0.15-1.2); Total Protein 7.5 g/dL (6.6-8.7)
[2020-07-11 00:25] LABS: Troponin(5th) Baseline 6 ng/L (0-10)
[2020-07-11 01:02] VITALS: BP 132/80; PULSE 89; RESP 16; O2SAT 96
== END 2020-07-11 01:03 | disposition home or self-care (01) ==
PROVIDERS: Nurse Practitioner Family; Emergency Provider Emergency Medicine; PCP Family Medicine
DX: R07.9 Chest pain, unspecified (principal)
CPT/HCPCS: 12345; 71045; 80053; 84484; 85025; 85378; 93005; 99282; 99283

== ENCOUNTER → 2020-07-19 13:43 | Outpatient (BNVA) | payer MEDICAID, SELFPAY | PROVIDERS: PCP Family Medicine; Visit Provider Nurse Practitioner Family | DX: E04.9 Nontoxic goiter, unspecified (principal) | CPT/HCPCS: 84439; 84443 ==

== ENCOUNTER → 2020-07-21 00:01 | Outpatient (BNVA) | payer MEDICAID, SELFPAY | PROVIDERS: PCP Family Medicine; Visit Provider Nurse Practitioner Family | DX: R53.83 Other fatigue (principal); R63.4 Abnormal weight loss; E07.9 Disorder of thyroid, unspecified | CPT/HCPCS: 80307; 82728; 83550; 85025 ==

== ENCOUNTER → 2020-07-22 11:11 | Outpatient (BNVA) | payer MEDICAID, SELFPAY | PROVIDERS: PCP Family Medicine; Visit Provider Psychiatry & Neurology Psychiatry | DX: F32.9 Major depressive disorder, single episode, unspecified (principal); F40.10 Social phobia, unspecified; F41.1 Generalized anxiety disorder | CPT/HCPCS: 99214 ==

== ENCOUNTER 2020-07-29 13:07 | Outpatient (CLI) | payer MEDICAID, SELFPAY ==
--- NOTE | 2020-07-29 15:45 | US_ITS ---
WS: [id number] ULTRASOUND THYROID TECHNIQUE: Ultrasound of the thyroid. CLINICAL INFORMATION: E04.9 - Nontoxic goiter, unspecified COMPARISON: None. FINDINGS: Thyroid: Right and left thyroid lobes are upper limits of normal in size with normal echotexture. No thyroid nodules are present. Right thyroid lobe: 4.9 cm x 1.8 cm x 1.8 cm Left thyroid lobe: 5.2 cm x 1.8 cm x 1.7 cm. Right lobe volume 8.2 cc. Left lobe volume 8.0 cc Isthmus: 0.7 mm. Cervical lymphadenopathy: None. US/US thyroid [id number] IMPRESSION: Thyroid volume upper limits of normal. No nodules to target for biopsy. Thyroid otherwise normal.
== END 2020-07-29 13:08 | disposition home or self-care (01) ==
LOC: US 13:09
PROVIDERS: PCP Family Medicine; Visit Provider Nurse Practitioner Family
DX: E04.9 Nontoxic goiter, unspecified (principal)
CPT/HCPCS: 76536

== ENCOUNTER → 2020-08-10 15:50 | Outpatient (BNVA) | payer MEDICAID, SELFPAY | PROVIDERS: PCP Family Medicine; Visit Provider Psychiatry & Neurology Psychiatry | DX: F40.10 Social phobia, unspecified (principal); F41.1 Generalized anxiety disorder | CPT/HCPCS: 99214 ==

== ENCOUNTER → 2020-09-09 08:36 | Outpatient (BNVA) | payer MEDICAID, SELFPAY | PROVIDERS: PCP Family Medicine; Visit Provider Psychiatry & Neurology Psychiatry | DX: F40.10 Social phobia, unspecified (principal); F41.1 Generalized anxiety disorder | CPT/HCPCS: 99214 ==

== ENCOUNTER → 2020-10-14 11:59 | Outpatient (BNVA) | payer MEDICAID, SELFPAY | PROVIDERS: PCP Family Medicine; Visit Provider Nurse Practitioner Family | DX: E61.1 Iron deficiency (principal) | CPT/HCPCS: 82728; 83550 ==

== ENCOUNTER → 2020-10-25 12:39 | Outpatient (BNVA) | payer MEDICAID, SELFPAY | PROVIDERS: PCP Family Medicine; Visit Provider Social Worker Clinical | DX: F41.1 Generalized anxiety disorder (principal); F41.0 Panic disorder [episodic paroxysmal anxiety] | CPT/HCPCS: 90834; 90832 ==

== ENCOUNTER → 2020-11-09 11:21 | Outpatient (BNVA) | payer MEDICAID, SELFPAY | PROVIDERS: PCP Family Medicine; Visit Provider Psychiatry & Neurology Psychiatry | DX: F40.10 Social phobia, unspecified (principal); F41.1 Generalized anxiety disorder | CPT/HCPCS: 99214 ==

== ENCOUNTER → 2020-11-15 10:43 | Outpatient (BNVA) | payer MEDICAID, SELFPAY | PROVIDERS: PCP Family Medicine; Visit Provider Social Worker Clinical | DX: F41.1 Generalized anxiety disorder (principal) | CPT/HCPCS: 90834 ==

== ENCOUNTER → 2020-11-30 10:47 | Outpatient (BNVA) | payer MEDICAID, SELFPAY | PROVIDERS: PCP Family Medicine; Visit Provider Social Worker Clinical | DX: F41.1 Generalized anxiety disorder (principal) | CPT/HCPCS: 90834 ==

== ENCOUNTER → 2020-12-20 12:47 | Outpatient (BNVA) | payer MEDICAID, SELFPAY | PROVIDERS: PCP Family Medicine; Visit Provider Social Worker Clinical | DX: F41.1 Generalized anxiety disorder (principal) | CPT/HCPCS: 90834 ==

== ENCOUNTER → 2021-01-03 08:30 | Outpatient (BNVA) | payer MEDICAID, SELFPAY | PROVIDERS: PCP Family Medicine; Visit Provider Psychiatry & Neurology Psychiatry | DX: F40.10 Social phobia, unspecified (principal); F41.1 Generalized anxiety disorder | CPT/HCPCS: 99214 ==

== ENCOUNTER → 2021-01-10 12:56 | Outpatient (BNVA) | payer OTHER, SELFPAY | PROVIDERS: PCP Family Medicine; Visit Provider Social Worker Clinical | DX: F41.1 Generalized anxiety disorder (principal); F40.10 Social phobia, unspecified | CPT/HCPCS: 90834 ==

== ENCOUNTER → 2021-01-24 12:58 | Outpatient (BNVA) | payer OTHER, SELFPAY | PROVIDERS: PCP Family Medicine; Visit Provider Social Worker Clinical | DX: F41.1 Generalized anxiety disorder (principal) | CPT/HCPCS: 90834 ==

== ENCOUNTER → 2021-02-08 12:52 | Outpatient (BNVA) | payer OTHER, SELFPAY | PROVIDERS: PCP Family Medicine; Visit Provider Social Worker Clinical | DX: F41.1 Generalized anxiety disorder (principal) | CPT/HCPCS: 90834; 90839 ==

== ENCOUNTER → 2021-02-28 08:03 | Outpatient (BNVA) | payer OTHER, SELFPAY | PROVIDERS: PCP Family Medicine; Visit Provider Psychiatry & Neurology Psychiatry | DX: F40.10 Social phobia, unspecified (principal); F41.1 Generalized anxiety disorder | CPT/HCPCS: 99214 ==

== ENCOUNTER → 2021-03-07 07:48 | Outpatient (BNVA) | payer OTHER, SELFPAY | PROVIDERS: PCP Family Medicine; Visit Provider Social Worker Clinical | DX: F41.1 Generalized anxiety disorder (principal) | CPT/HCPCS: 90834 ==

== ENCOUNTER → 2022-12-13 13:09 | Outpatient (BNVA) | payer OTHER, SELFPAY | PROVIDERS: Visit Provider Registered Nurse | DX: Z79.899 Other long term (current) drug therapy (principal) | CPT/HCPCS: 80053; 80061; 82306; 82607; 82728; 83036; 83540; 84443; 85025 ==

== ENCOUNTER 2024-06-07 16:42 | Emergency (ER) | payer MEDICAID, SELFPAY ==
[2024-06-07 17:00] VITALS: BP 119/77; PULSE 105; RESP 16; TEMP 37.2; O2SAT 97; BMI 21.9
[2024-06-07 18:08] LABS: Basophils % 0.3 %; Eosinophils % 0.1 %; Lymphocytes # 1.5 10^3/uL (0.8-4.8); Lymphocytes % 14.6 %; Mean Corpuscular HGB Conc 32.1 g/dL (30-55); Mean Corpuscular Hemoglobin 25.8 pg (27-33); Mean Corpuscular Volume 80.5 fl (85-98); Mean Platelet Volume 9.7 fL (7.4-10.4); Monocytes # 0.4 10^3/uL (0.2-0.9); Monocytes % 3.7 %; Neutrophils # 8.24 10^3/uL (1.8-7.7); Neutrophils % 80.9 %; Nucleated Red Blood Cells % 0 %; Platelet Count 304 10^3/cmm (157-399); Red Blood Count 4.72 10^6/uL (3.85-5.65); Red Cell Distribution Width 13.2 % (12.1-15.1); White Blood Count 10.19 10^3/uL (3.29-11.43)
[2024-06-07 18:31] LABS: Alanine Aminotransferase 7 U/L (0-33); Albumin Level 4.3 g/dL (3.5-5.2); Alkaline Phosphatase 52 U/L (35-105); Anion Gap 15.1 (5-19); Aspartate Amino Transferase 13 U/L (0-32); Blood Urea Nitrogen 5 mg/dL (6-20); Calcium 9.5 mg/dL (8.5-10.5); Carbon Dioxide 24 mmol/L (22-29); Chloride 103 mmol/L (98-107); Globulin 3.2 g/dL (1.3-4.6); Glomerular Filtration Rate 120.8 mL/min (90-130); Glucose 97 mg/dL (65-115); Lipase 31 U/L (13-60); Osmolality Calculated 283 mOsm/kg (285-295); Potassium 4.1 mmol/L (3.5-5.1); Sodium 138 mmol/L (136-145); Total Bilirubin 0.3 mg/dL (0.15-1.2); Total Protein 7.5 g/dL (6.6-8.7)
--- NOTE | 2024-06-07 19:37 | W.ED.NAVMDI ---
HPI - Nausea/Vomiting/Diarrhea General: Chief complaint: Nausea/Vomiting/Diarrhea Stated complaint: had miscarriage, unable to keep anything down, fev Time Seen by Provider: 06/07/24 19:27 History of Present Illness: 24-year-old female with history of multiple miscarriages in the past who presents emergency room with intractable nausea and vomiting. She says she was diagnosed with miscarriage yesterday at a clinic. Apparently this was secondary to a negative hCG at that time. She was started on a medication for this. Patient starts with an M. I believe this may have been methotrexate. She says bleeding and cramping are similar to previous miscarriages. She just has not been able to keep anything down. She may have had a fever a couple days ago but is afebrile here and has not taken anything for fevers. Related Data Home Medications Medication Instructions Recorded Confirmed cholecalciferol (vitamin D3) 1,250 50,000 unit PO .weekly 02/28/23 02/28/23 mcg (50,000 unit) capsule ferrous sulfate 325 mg (65 mg 325 mg PO TID 02/28/23 02/28/23 iron) tablet (Feosol) Previous Rx's Medication Instructions Recorded cefdinir 300 mg capsule 300 mg PO BID 7 days #14 caps 06/07/24 ondansetron 8 mg disintegrating 8 mg PO Q6H #14 tabs 06/07/24 tablet promethazine 25 mg rectal 25 mg [place] Q6H PRN nausea and 06/07/24 suppository vomiting #12 ea Allergies Allergy/AdvReac Type Severity Reaction Status Date / Time amoxicillin Allergy Intermediate Rash Verified 06/07/24 17:07 Penicillins Allergy Intermediate Rash Verified 06/07/24 17:07 Review of Systems Narrative: Constitutional symptoms: Negative except as documented in HPI. Skin symptoms: Negative except as documented in HPI. Eye symptoms: Negative except as documented in HPI. ENMT symptoms: Negative except as documented in HPI. Respiratory symptoms: Negative except as documented in HPI. Cardiovascular symptoms: Negative except as documented in HPI. Gastrointestinal symptoms: Negative except as documented in HPI. Genitourinary symptoms: Negative except as documented in HPI. Musculoskeletal symptoms: Negative except as documented in HPI. Neurologic symptoms: Negative except as documented in HPI. Psychiatric symptoms: Negative except as documented in HPI. Endocrine symptoms: Negative except as documented in HPI. PFSH ED PFSH: Medical History (Updated 06/07/24 @ 20:10 by Margie Pope MD) Social anxiety disorder JAH (generalized anxiety disorder) Social History Smoking and tobacco/nicotine status: never used tobacco/nicotine Current gender identity: Female Female Reproductive History: Date of last menstrual period: 03/24/24 Physical Exam Narrative: EXAM NARRATIVE: General: Alert, no acute distress. Skin: Warm, dry. Head: Normocephalic, atraumatic. Neck: Supple, trachea midline. Eye: Extraocular movements are intact. Ears, nose, mouth and throat: mucosa moist. Cardiovascular: Regular, Normal peripheral perfusion. Respiratory: Lungs are clear to auscultation, respirations are non-labored, breath sounds are equal, Symmetrical chest wall expansion. Gastrointestinal: Soft, Nontender, Non distended Musculoskeletal: Normal ROM, no deformity. Neurological: Alert and oriented, No focal neurological deficit observed. Psychiatric: Cooperative, appropriate mood & affect. Course Vital Signs: Vital signs: Vital Signs Temperature 98.9 F 06/07/24 17:00 Pulse Rate 98 06/07/24 19:59 Respiratory Rate 16 06/07/24 19:59 Blood Pressure 118/74 06/07/24 19:59 Pulse Oximetry 97 06/07/24 19:59 Oxygen Delivery Me thod Room Air 06/07/24 19:59 MDM - Nausea/Vomiting/Diarrhea Medical Decision Making Patient states she is having a miscarriage. She has follow-up established for this here. I offered an ultrasound and she says she has had several recently and this feels like her usual miscarriage and she declines an ultrasound at this time. She just wants medication to try to get her feeling better. She she says she had an ultrasound that had determine the miscarriage. Just in the last few days. No leukocytosis. Her quant is still positive. Assessment and plan: Miscarriage Intractable vomiting ?IV Compazine and Benadryl here in the emergency room. - Discharged home - Discussed plan with patient. Answered any questions. - Evaluation and treatment of this problem were appropriate in the emergency setting. Lab Data 06/07/24 17:58 06/07/24 17:58 Laboratory Results WBC 10.19 10^3/uL (3.29-11.43) 06/07/24 17:58 RBC 4.72 10^6/uL (3.85-5.65) 06/07/24 17:58 Hgb 12.20 g/dL (11.27-16.99) 06/07/24 17:58 Hct 38.0 % (36-47) 06/07/24 17:58 MCV 80.5 fl (85-98) L 06/07/24 17:58 MCH 25.8 pg (27-33) L 06/07/24 17:58 MCHC 32.1 g/dL (30-55) 06/07/24 17:58 RDW 13.2 % (12.1-15.1) 06/07/24 17:58 Plt Count 304 10^3/cmm (157-399) 06/07/24 17:58 MPV 9.7 fL (7.4-10.4) 06/07/24 17:58 Neut % (Auto) 80.9 % 06/07/24 17:58 Lymph % (Auto) 14.6 % 06/07/24 17:58 [place] % (Auto) 3.7 % 06/07/24 17:58 Eos % (Auto) 0.1 % 06/07/24 17:58 Baso % (Auto) 0.3 % 06/07/24 17:58 Neut # (Auto) 8.24 10^3/uL (1.8-7.7) H 06/07/24 17:58 Lymph # (Auto) 1.5 10^3/uL (0.8-4.8) 06/07/24 17:58 [place] # (Auto) 0.4 10^3/uL (0.2-0.9) 06/07/24 17:58 Eos # (Auto) 0.0 10^3/uL (0.0-0.8) 06/07/24 17:58 Baso # (Auto) 0.0 10^3/uL (0.0-0.1) 06/07/24 17:58 Nucleated RBC % (auto) 0 % 06/07/24 17:58 Nucleated RBCs # 0.0 /100WBC 06/07/24 17:58 Sodium 138 mmol/L (136-145) 06/07/24 17:58 Potassium 4.1 mmol/L (3.5-5.1) 06/07/24 17:58 Chloride 103 mmol/L (98-107) 06/07/24 17:58 Carbon Dioxide 24 mmol/L (22-29) 06/07/24 17:58 Anion Gap 15.1 (5-19) 06/07/24 17:58 BUN 5 mg/dL (6-20) L 06/07/24 17:58 Creatinine 0.6 mg/dL (0.5-0.9) 06/07/24 17:58 GFR Calculation 120.8 mL/min (90-130) 06/07/24 17:58 Glucose 97 mg/dL (65-115) 06/07/24 17:58 Calculated Osmolality 283 mOsm/kg (285-295) L 06/07/24 17:58 Calcium 9.5 mg/dL (8.5-10.5) 06/07/24 17:58 Total Bilirubin 0.3 mg/dL (0.15-1.2) 06/07/24 17:58 AST 13 U/L (0-32) 06/07/24 17:58 ALT 7 U/L (0-33) 06/07/24 17:58 Alkaline Phosphatase 52 U/L (35-105) 06/07/24 17:58 Total Protein 7.5 g/dL (6.6-8.7) 06/07/24 17:58 Albumin 4.3 g/dL (3.5-5.2) 06/07/24 17:58 Globulin 3.2 g/dL (1.3-4.6) 06/07/24 17:58 Lipase 31 U/L (13-60) 06/07/24 17:58 Ser , Semi-Qnt 41641.00 mIU/mL 06/07/24 17:58 No radiology studies performed this visit Discharge Plan Discharge Patient Disposition: Home Clinical Impression: Vomiting, Miscarriage Condition: Stable Prescriptions: New promethazine 25 mg suppository 25 mg [place] Q6H PRN (Reason: nausea and vomiting) Qty: 12 0RF ondansetron 8 mg tablet,disintegrating 8 mg PO Q6H Qty: 14 0RF Rx Instructions: Take 1/2-1 tab every 6 hours as needed for nausea and vomiting cefdinir 300 mg capsule 300 mg PO BID 7 Days Qty: 14 0RF No Action ferrous sulfate [Feosol] 325 mg (65 mg iron) tablet 325 mg PO TID cholecalciferol (vitamin D3) 1,250 mcg (50,000 unit) capsule 50,000 unit PO .weekly Discharge Orders: Discharge ED (Routine); Ordered 06/07/24 Ordered By: Margie Pope Referrals: Claude Rivera MD [Primary Care Provider] - Discharge Diet: Usual diet Discharge Activity: Increase activity as tolerated Patient Instructions: Miscarriage (ED), Opioid Safety, Pain Management Activity Restrictions/Additional Instructions: Thank you for choosing [facility] for your healthcare needs today. Please realize this is an emergency room and that we are providing you with a medical screening exam and this may not be complete and all inclusive of all the testing and or work up that you may need to determine your ailment or severity of your illness. You have been screened and evaluated and felt safe for discharge. Health conditions do change or evolve sometimes and as such it is important that you follow up with your Primary Doctor to be re checked, 3-5 days is a general good time frame for follow up. You are always welcome to return to the ED for re assessment if your symptoms are worsening or you have new concerns Coding Level of Care Code ED Pyridine Operator for Yanna Dias
[2024-06-07 19:59] VITALS: BP 118/74; PULSE 98; RESP 16; O2SAT 97
[2024-06-07] MEDS: sodium chloride 0.9% 1,000 ML 999 ML IV ×2 (20:00→20:49)
[2024-06-07 20:08] VITALS: BP 109/77; PULSE 90; RESP 16; O2SAT 100
[2024-06-07] MEDS: ondansetron 2 mg/ML SDV 2 mL 8 MG IVP (20:15)
[2024-06-07] MEDS: diphenhydrAMINE 50 mg/mL SDV 1mL 25 MG IVP (20:16)
[2024-06-07] MEDS: prochlorperazine 10 mg/2 mL Inj IVP (20:17)
[2024-06-07] MEDS: cefTRIAXone 1,000 mg SDV 1000 MG IVP (20:49)
[2024-06-07 20:52] VITALS: BP 119/81; PULSE 92; RESP 16; O2SAT 99
[2024-06-07 21:36] LABS: Bilirubin Urine Negative (Negative); Blood Urine Negative (Negative); Glucose Urine UA Negative (Normal); Ketones Urine 2+ (Negative); Leukocyte Esterase Urine Negative (Negative); Nitrate Urine Negative (Negative); Protein Urine Trace (Negative); Specific Gravity, Urine 1.028 (1.005-1.030); Urine Appearance Clear (CLEAR); Urine Color Yellow (Yellow)
[2024-06-07 21:54] LABS: Add Urine Culture? No; Add Urine Microscopic? YES; Bacteria Urine TRACE /hpf; Mucus Urine 1+ /hpf; RBC Urine 0-4 /hpf (0-2); Squamous Epithelial Cell Urine 0-4 /hpf (0-5); WBC Urine 0-4 /hpf (0-5)
[2024-06-07 22:03] VITALS: BP 113/74; PULSE 111; RESP 14; O2SAT 97
== END 2024-06-07 22:04 | disposition home or self-care (01) ==
PROVIDERS: Emergency Medicine; Emergency Provider Emergency Medicine; PCP Family Medicine
DX: O03.9 Complete or unspecified spontaneous abortion without complication (principal); R11.10 Vomiting, unspecified
CPT/HCPCS: 36415; 80053; 81001; 83690; 84702; 85025; 96361; 96374; 96375; 99284; J0696; J0780; J1200; J2405; J7030